=== PATIENT | female | born 1970 | race African-American/Black ===

== ENCOUNTER → 2017-10-24 | Outpatient (CLI) | payer OTHER ==
--- NOTE | 2017-10-25 09:13 | RAD ---
Two-view chest 10/24/2017 Clinical indication: Hemoptysis, history of bronchitis. Comparison: None. Findings: Cardiac and mediastinal silhouettes are unremarkable. No pleural effusion, pneumothorax or focal consolidation. There is multilevel thoracic spondylosis. Impression: No acute cardiopulmonary abnormality.
== END | disposition home or self-care (01) ==
LOC: RAD 16:58
PROVIDERS: ATTEND Family Medicine
DX: J40 Bronchitis, not specified as acute or chronic (principal); M47.894 Other spondylosis, thoracic region; R04.2 Hemoptysis
CPT/HCPCS: 71020

== ENCOUNTER 2021-04-22 17:43 | Emergency (ER) | payer OTHER ==
[~2021-04-22] VITALS: Ht 160 cm; Wt 95.0 kg
[2021-04-22 18:10] VITALS: BP 149/66
[2021-04-22] MEDS ORDERED: CLIN150C15 PO (19:10)
--- NOTE | 2021-04-22 19:10 | PHYS DOC ---
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 Worley started her on prednisone. Denies any fever. Denies any nausea vomiting. Denies any difficulty breathing ([employer]INGS OFFICER) Review of Systems: Review of Systems: Constitutional: Denies fever or chills. [] Eyes: Denies change in visual acuity. [] HENT: Denies nasal congestion or sore throat. [] Respiratory: Denies cough or shortness of breath. [] Cardiovascular: Denies chest pain or edema. [] GI: Denies abdominal pain, nausea, vomiting, bloody stools or diarrhea. [] : Denies dysuria. [] Musculoskeletal: Denies back pain or joint pain. [] Integument: Reports spider bite to the right forearm Neurologic: Denies headache, focal weakness or sensory changes. [] Psychiatric: Denies depression or anxiety. [] ([employer] WORK[employer]INGS OFFICER) Heart Score: C/O Chest Pain: N/A Risk Factors: Risk Factors: DM, Current or recent (<one month) smoker, HTN, HLP, family history of CAD, obesity. Risk Scores: Score 0 - 3: 2.5% MACE over next 6 weeks - Discharge Home Score 4 - 6: 20.3% MACE over next 6 weeks - Admit for Clinical Observation Score 7 - 10: 72.7% MACE over next 6 weeks - Early Invasive Strategies ([employer]INGS OFFICER) Allergies: Allergies: Allergies Coded Allergies Type Severity Reaction Last Updated Verified No Known Drug Allergies 04/22/21 No ([employer] OFFICER) Physical Exam: PE: Constitutional: Well developed, well nourished, no acute distress, non-toxic appearance. [] HENT: Normocephalic, atraumatic, bilateral external ears normal, oropharynx moist, no oral exudates, nose normal. [] Eyes: PERRLA, EOMI, conjunctiva normal, no discharge. [] Neck: Normal range of motion, no tenderness, supple, no stridor. [] Cardiovascular:Heart rate regular rhythm, no murmur [] Lungs & Thorax: Bilateral breath sounds clear to auscultation [] Abdomen: Bowel sounds normal, soft, no tenderness, no masses, no pulsatile masses. [] Skin: Right forearm with a circular area roughly 6 x 5 cm, there is areas of necrosis in this region. There is erythema around this region. The area is warm, tender to touch. Neurovascular exam is intact to the right upper extr emity. Back: No tenderness, no CVA tenderness. [] Extremities: No tenderness, no cyanosis, no clubbing, ROM intact, no edema. [] Neurologic: Alert and oriented X 3, normal motor function, normal sensory function, no focal deficits noted. [] Psychologic: Affect normal, judgement normal, mood normal. [] ([employer]INGS OFFICER) Current Patient Data: Vital Signs: Vital Signs Date Time Temp Pulse Resp B/P (MAP) Pulse Ox O2 Delivery O2 Flow Rate FiO2 04/22/21 18:10 98.8 52 16 149/66 (93) 99 Room Air 98.8 ([employer] OFFICER) EKG: EKG: [] ([employer]INGS OFFICER) Radiology/Procedures: Radiology/Procedures: [] (DESIREE SEWELL APRN) Course & Med Decision Making: Course & Med Decision Making Pertinent Labs and Imaging studies reviewed. (See chart for details) This is a 50-year-old female patient presented to the ED today with a spider bite to the right forearm. Patient was offered a admission to the hospital for IV antibiotics, she refused. 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 Soto for the wound clinic if need be. Tetanus is up-to-date, discharged on clindamycin. Encouraged to continue taking prednisone. ([employer] OFFICER) Course & Med Decision Making The chart was reviewed. Care and treatment plan made by midlevel provider. I was available for consult. (PAIGE REESE DO) Himanshu Disclaimer: Himanshu Disclaimer: This electronic medical record was generated, in whole or in part, using a voice recognition dictation system. (DESIREE SEWELL APRN) Departure Departure Impression: Primary Impression: Venomous spider bite Disposition: HOME / SELF CARE / HOMELESS Condition: STABLE Referrals: NO PCP (PCP) Olvin WORLEY MD follow up in one day Patient Instructions: Spider Bite Additional Instructions: You were seen for a spider bite to the right forearm. Please take the prescribed antibiotics until completed. Continue taking the prednisone. Come back to the ED at any point symptoms worsen Scripts Clindamycin Hcl (CLINDAMYCIN HCL) 150 Mg Capsule 3 CAP PO TID, #90 CAP Prov: DESIREE SEWELL APRN 04/22/21 DESIREE SEWELL APRN Apr 22, 2021 19:10 PAIGE REESE DO Apr 23, 2021 20:16
[2021-04-22] MEDS ORDERED: KETOROLAC 60 MG/2 ML VIAL. IM ONE (19:15)
== END 2021-04-22 19:50 | disposition home or self-care (01) ==
LOC: ER 17:43
DX: T63.391A Toxic effect of venom of other spider, accidental (unintentional), initial encounter (principal); Y92.89 Other specified places as the place of occurrence of the external cause
CPT/HCPCS: 96372; 99283; J1885